=== PATIENT | female | born 1960 | race Caucasian/White ===

== ENCOUNTER 2020-07-09 09:50 | Emergency (ER) | payer OTHER ==
[~2020-07-09] VITALS: Ht 182.9 cm; Wt 95.3 kg
[2020-07-09 09:50] VITALS: BP_SYST 136
[2020-07-09 10:41] VITALS: BP_SYST 136
== END 2020-07-09 10:38 | disposition home or self-care (01) ==
LOC: SED 09:50
DX: S90.32XA Contusion of left foot, initial encounter (principal); Z88.0 Allergy status to penicillin; Z88.2 Allergy status to sulfonamides; Z88.8 Allergy status to other drugs, medicaments and biological substances; W18.39XA Other fall on same level, initial encounter; Y93.89 Activity, other specified; Y92.89 Other specified places as the place of occurrence of the external cause; Y99.8 Other external cause status
CPT/HCPCS: 99283

== ENCOUNTER → 2020-07-24 | Outpatient (CLI) | payer OTHER ==
[2020-07-24 11:13] LABS: BASOPHILS # (AUTO) 0.1 K/uL (0.0-0.2); BASOPHILS % (AUTO) 1.8 % (0.0-2.0); EOSINOPHILS # (AUTO) 0.2 K/uL (0.0-0.4); EOSINOPHILS % (AUTO) 4.6 % (0.0-4.0); HEMATOCRIT 40.2 % (36-48); HEMOGLOBIN 13.5 g/dL (12.0-16.0); LYMPHOCYTES % (AUTO) 23.1 % (20.5-51.5); MEAN CORPUSCULAR HEMOGLOBIN 30 pg (27-31); MEAN CORPUSCULAR HGB CONC 34 % (32-36); MEAN CORPUSCULAR VOLUME 89 fL (79.0-98.0); MONOCYTES # (AUTO) 0.2 K/uL (0.0-1.0); MONOCYTES % (AUTO) 5.5 % (1.7-9.3); NEUTROPHILS # (AUTO) 2.9 K/uL (1.8-7.7); PLATELET COUNT (AUTO) 192 K/uL (130-430); RED BLOOD CELL COUNT(AUTO) 4.53 MIL/uL (4.2-6.2); RED CELL DISTRIBUTION WIDTH 13.4 % (9.0-15.0); WHITE BLOOD COUNT (AUTO) 4.4 K/uL (4.8-10.8)
[2020-07-24 11:59] LABS: CALCIUM 8.5 mg/dL (8.4-11.0)
[2020-07-24 12:00] LABS: ALBUMIN 3.8 g/dL (3.4-4.8); CREATININE 0.83 mg/dL (0.55-1.30); THYROID STIMULATING HORMONE 2.45 uIu/mL (0.36-3.74); TOTAL BILIRUBIN 0.7 mg/dL (0.0-1.0); URIC ACID 5.5 mg/dL (2.4-7.0)
[2020-07-25 07:07] LABS: COMPLEMENT C4, SERUM 21 mg/dL (12-38); RA LATEX TURBID <10.0 IU/mL (0.0-13.9)
[2020-07-25 11:07] LABS: ANTI-DNA(DS) AB, QN <1 IU/mL (0-9); ANTI-NUCLEAR AB DIRECT Negative (Negative); SMITH ABS <0.2 AI (0.0-0.9)
== END | disposition home or self-care (01) ==
LOC: SLB 09:50
PROVIDERS: ATTEND Internal Medicine
DX: Z00.01 Encounter for general adult medical examination with abnormal findings (principal); I10 Essential (primary) hypertension; E78.5 Hyperlipidemia, unspecified; R73.9 Hyperglycemia, unspecified
CPT/HCPCS: 36415; 80053; 80061; 82306; 82607; 83036; 84443; 84550; 85025; 86431

== ENCOUNTER → 2020-07-31 | Outpatient (CLI) | payer OTHER | END | disposition home or self-care (01) | LOC: SRD 08:34 | PROVIDERS: ATTEND Internal Medicine | DX: M19.041 Primary osteoarthritis, right hand (principal) | CPT/HCPCS: 73140-TC ==

== ENCOUNTER 2020-08-04 08:49 | Outpatient (CLI) | payer OTHER | END 2020-08-04 20:33 | disposition home or self-care (01) | LOC: SUS 08:49 | PROVIDERS: ATTEND Internal Medicine | DX: E01.0 Iodine-deficiency related diffuse (endemic) goiter (principal); E06.9 Thyroiditis, unspecified | CPT/HCPCS: 76536-TC ==

== ENCOUNTER 2020-12-24 10:03 | Outpatient (CLI) | payer OTHER ==
[2020-12-24 11:15] LABS: HEMATOCRIT 39.2 % (36-48); HEMOGLOBIN 13.2 g/dL (12.0-16.0); MEAN CORPUSCULAR HEMOGLOBIN 29 pg (27-31); MEAN CORPUSCULAR HGB CONC 34 % (32-36); MEAN CORPUSCULAR VOLUME 88 fL (79.0-98.0); PLATELET COUNT (AUTO) 176 K/uL (130-430); RED BLOOD CELL COUNT(AUTO) 4.48 MIL/uL (4.2-6.2); RED CELL DISTRIBUTION WIDTH 13.8 % (9.0-15.0); WHITE BLOOD COUNT (AUTO) 4.4 K/uL (4.8-10.8)
[2020-12-24 11:18] LABS: ALBUMIN 3.7 g/dL (3.4-4.8); C-REACTIVE PROTEIN QUANT 0.9 mg/dL (0-0.5); CREATININE 0.97 mg/dL (0.55-1.30); POTASSIUM 4.3 mmol/L (3.5-5.1); TOTAL BILIRUBIN 0.7 mg/dL (0.0-1.0)
[2020-12-24 11:54] LABS: THYROID STIMULATING HORMONE 2.51 uIu/mL (0.36-3.74)
[2020-12-24 12:00] LABS: ERYTHROCYTE SEDIMENTATION RATE 11 MM/HR (0-20)
[2020-12-24 12:10] LABS: BILIRUBIN,URINE NEGATIVE (NEGATIVE); BLOOD, URINE NEGATIVE (NEGATIVE); CLARITY/URINE CLEAR (CLEAR); COLOR,URINE YELLOW (YELLOW); GLUCOSE,URINE NEGATIVE (NEGATIVE); KETONES,URINE NEGATIVE (NEGATIVE); LEUKOCYTE ESTERASE ,URINE NEGATIVE (NEGATIVE); NITRITE, URINE NEGATIVE (NEGATIVE); PROTEIN URINE NEGATIVE (NEGATIVE); UROBILINOGEN,URINE 0.2 (0.2-1.0)
[2020-12-24 14:07] LABS: ATYPICAL LYMPHOCYTES % 1 % (0-0); BASOPHILS % (MANUAL) 0 % (0-2); EOSINOPHILS % (MANUAL) 7 % (0-7); LYMPHOCYTES % (MANUAL) 31 % (20-46); MONOCYTES % (MANUAL) 5 % (0-11)
[2020-12-31 15:12] LABS: HEMOGLOBIN A1C 6.4 % (4.8-5.6)
== END 2020-12-24 17:30 | disposition home or self-care (01) ==
LOC: SLB 10:03
PROVIDERS: ATTEND Internal Medicine
DX: I10 Essential (primary) hypertension (principal); E06.9 Thyroiditis, unspecified; E55.9 Vitamin D deficiency, unspecified; R73.9 Hyperglycemia, unspecified
CPT/HCPCS: 36415; 80053; 80061; 81003; 82306; 82607; 83036; 84443; 85007; 85027; 85651-TC; 86140

== ENCOUNTER 2021-01-28 09:12 | Outpatient (CLI) | payer OTHER | END 2021-01-28 20:56 | disposition home or self-care (01) | LOC: SMI 09:12 | PROVIDERS: ATTEND Internal Medicine | DX: Z12.31 Encounter for screening mammogram for malignant neoplasm of breast (principal); E04.1 Nontoxic single thyroid nodule; E04.9 Nontoxic goiter, unspecified; M47.816 Spondylosis without myelopathy or radiculopathy, lumbar region; M51.26 Other intervertebral disc displacement, lumbar region; M46.06 Spinal enthesopathy, lumbar region; M54.30 Sciatica, unspecified side | CPT/HCPCS: 72148; 76536-TC; 77067 ==

== ENCOUNTER 2021-02-17 15:40 | Outpatient (CLI) | payer OTHER | END 2021-02-17 19:29 | disposition home or self-care (01) | LOC: SRD 15:40 | PROVIDERS: ATTEND Internal Medicine | DX: S82.65XA Nondisplaced fracture of lateral malleolus of left fibula, initial encounter for closed fracture (principal); S02.91XA Unspecified fracture of skull, initial encounter for closed fracture; X58.XXXA Exposure to other specified factors, initial encounter; Y93.89 Activity, other specified; Y92.89 Other specified places as the place of occurrence of the external cause; Y99.8 Other external cause status | CPT/HCPCS: 70450-TC; 76376 ==

== ENCOUNTER 2021-05-04 15:54 | Outpatient (CLI) | payer OTHER ==
[2021-05-04 17:41] LABS: BASOPHILS # (AUTO) 0.1 K/uL (0.0-0.2); BASOPHILS % (AUTO) 1.2 % (0.0-2.0); EOSINOPHILS # (AUTO) 0.2 K/uL (0.0-0.4); EOSINOPHILS % (AUTO) 3.6 % (0.0-4.0); HEMATOCRIT 40.9 % (36-48); HEMOGLOBIN 13.5 g/dL (12.0-16.0); LYMPHOCYTES # (AUTO) 1.4 K/uL (1.0-5.5); LYMPHOCYTES % (AUTO) 30.9 % (20.5-51.5); MEAN CORPUSCULAR HEMOGLOBIN 29 pg (27-31); MEAN CORPUSCULAR HGB CONC 33 % (32-36); MEAN CORPUSCULAR VOLUME 88 fL (79.0-98.0); MONOCYTES # (AUTO) 0.3 K/uL (0.0-1.0); MONOCYTES % (AUTO) 6.8 % (1.7-9.3); NEUTROPHILS # (AUTO) 2.5 K/uL (1.8-7.7); NEUTROPHILS % (AUTO) 57.5 % (40.0-70.0); PLATELET COUNT (AUTO) 190 K/uL (130-430); RED BLOOD CELL COUNT(AUTO) 4.66 MIL/uL (4.2-6.2); RED CELL DISTRIBUTION WIDTH 13.4 % (9.0-15.0); WHITE BLOOD COUNT (AUTO) 4.4 K/uL (4.8-10.8)
[2021-05-04 18:34] LABS: ALBUMIN 3.7 g/dL (3.4-4.8); CALCIUM 7.8 mg/dL (8.4-11.0); CREATININE 0.75 mg/dL (0.55-1.30); FREE T4 (FREE THYROXINE) 0.9 ng/dl (0.8-1.5); THYROID STIMULATING HORMONE 2.23 uIu/mL (0.36-3.74); TOTAL BILIRUBIN 0.2 mg/dL (0.0-1.0)
== END 2021-05-04 19:35 | disposition home or self-care (01) ==
LOC: SCT 15:54
PROVIDERS: ATTEND Internal Medicine
DX: S82.892A Other fracture of left lower leg, initial encounter for closed fracture (principal); I82.403 Acute embolism and thrombosis of unspecified deep veins of lower extremity, bilateral; E56.9 Vitamin deficiency, unspecified; R73.9 Hyperglycemia, unspecified; E55.9 Vitamin D deficiency, unspecified; E06.9 Thyroiditis, unspecified; I10 Essential (primary) hypertension; X58.XXXA Exposure to other specified factors, initial encounter; Y93.89 Activity, other specified; Y92.89 Other specified places as the place of occurrence of the external cause; Y99.8 Other external cause status
CPT/HCPCS: 36415; 73700-TC; 76376; 80053; 82306; 82607; 83036; 84439; 84443; 85025; 86376; 93970

== ENCOUNTER 2021-05-06 08:42 | Outpatient (CLI) | payer OTHER | END 2021-05-06 14:00 | disposition home or self-care (01) | LOC: SMI 08:42 | PROVIDERS: ATTEND Internal Medicine | DX: M79.89 Other specified soft tissue disorders (principal); M25.572 Pain in left ankle and joints of left foot | CPT/HCPCS: 73721 ==